=== PATIENT | female | born 1955 | race Caucasian/White ===

== ENCOUNTER 2022-07-03 14:43 | Observation (INO) | payer OTHER ==
[2022-07-03] VITALS (468 sets, daily range): BP systolic 129–140; BP diastolic 64–67; PULSE 90–92; TEMP 96.8–98.1; O2SAT 81–100
[~2022-07-03] VITALS: Ht 152.4 cm; Wt 100.3 kg
[2022-07-03 16:06] LABS: ARTERIAL BLD GAS O2 SATURATION 88.3 % (92-100); ARTERIAL BLD GAS TCO2 CT 24.4; ARTERIAL BLOOD GAS BASE EXCESS -1.2 (-2-2); ARTERIAL BLOOD GAS HCO3 23.2 meq/L (22-26); ARTERIAL BLOOD GAS PCO2 37.9 mmHg (35-45); ARTERIAL BLOOD GAS PO2 55.3 mmHg (80-100); ARTERIAL BLOOD GAS pH 7.41 (7.35-7.45)
[2022-07-03 17:01] LABS: MEAN CELL VOLUME 89 fl (80.0-100.0); MEAN CORPUSCULAR HEMOGLOBIN 27 pg (27-31); MEAN CORPUSCULAR HGB CONC 30 g/dl (33.0-37.0); MEAN PLATELET VOLUME 9.5 fl (7.4-10.4); PLATELET COUNT 136 K/mm3 (130-400); RED BLOOD COUNT 3.73 M/mm3 (4.10-5.30); REDCELL DISTRIBUTION WIDTH-CV 14.5 % (11.5-14.5)
[2022-07-03 17:03] LABS: HEMATOCRIT 33.1 % (37.0-47.0)
[2022-07-03 17:20] LABS: ALBUMIN 3.6 gm/dL (3.4-4.8); BILIRUBIN,TOTAL 0.8 mg/dL (0.2-1.2); CALCIUM 9.6 mg/dL (8.4-10.2); CREATININE, serum 0.76 mg/dL (0.57-1.11); POTASSIUM 3.6 mmol/L (3.5-4.5); TOTAL PROTEIN 7.7 gm/dL (6.2-8.1)
[2022-07-03 17:29] LABS: TROPONIN-I 0.023 ng/mL (0.00-0.033)
[2022-07-03 17:37] LABS: LYMPHOCYTE 5 % (20.0-51.0); METAMYELOCYTE 1 % (0-0); NEUTROPHILS 92 % (42.0-75.2)
[2022-07-03 17:38] LABS: HYPOCHROMIA 3+; PLATELET ESTIMATE NORMAL (NORMAL)
--- NOTE | 2022-07-03 20:12 | NUR ---
BEDSIDE SHIFT REPORT RECEIVED FROM JSESICA ADLER. PT CURRENTLY RESTING IN BED. VSS. SALINE LOCKED. BURNS DRAINING APPROPRIATELY. NO ACUTE CHANGES NOTED AT THIS TIME
[2022-07-04] VITALS (767 sets, daily range): BP systolic 117–134; BP diastolic 56–66; PULSE 61–96; TEMP 98.1–98.9; O2SAT 83–100
[2022-07-04 05:48] LABS: MEAN CORPUSCULAR HGB CONC 32 g/dl (33.0-37.0); MEAN PLATELET VOLUME 9.4 fl (7.4-10.4); PLATELET COUNT 136 K/mm3 (130-400); RED BLOOD COUNT 3.42 M/mm3 (4.10-5.30); REDCELL DISTRIBUTION WIDTH-CV 14.3 % (11.5-14.5)
[2022-07-04 06:05] LABS: CALCIUM 9.7 mg/dL (8.4-10.2); CREATININE, serum 0.73 mg/dL (0.57-1.11); POTASSIUM 4.5 mmol/L (3.5-4.5)
[2022-07-04 06:18] LABS: HEMATOCRIT 28.8 % (37.0-47.0); HEMOGLOBIN 9.1 g/dl (12.5-16.0); MEAN CELL VOLUME 84 fl (80.0-100.0); MEAN CORPUSCULAR HEMOGLOBIN 27 pg (27-31)
[2022-07-04 06:41] LABS: BAND 1 % (0-10); LYMPHOCYTE 8 % (20.0-51.0); NEUTROPHILS 87 % (42.0-75.2); PLATELET ESTIMATE NORMAL (NORMAL)
--- NOTE | 2022-07-04 09:08 | NUR ---
Fan Mail Clerk collaborated with RN who advised patient is alert, oriented and will discharge home today. 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 Patient sees Dr. Hermosillo for primary care and obtains medications from [facility] in [place] with no difficulties. Patient is independent with ADLS and does not use any DME. Patient does not have DPOA-HC but plans to complete this with her senior engineering manager soon. Patient states her friend, Blaire Rose from [place] is her emergency contact, but patient states she does not have her phone with her to provide phone number. Blaire will picking machine operator helper patient today at time of discharge. Discharge Plan: Home
--- NOTE | 2022-07-04 09:08 | NUR ---
PT UP TO CHAIR THIS MORNING FOR BREAKFAST. VSS. PT DENIES PAIN, SOB, DIZZINESS. PT AMBULATES TO COMMODE W/O ISSUES. NO GTTS RUNNING. NO FURTHER CONCERNS EXPRESSED.
--- NOTE | 2022-07-04 13:30 | NUR ---
Pt discharge instructions discussed with patient who verbalized understanding, all questions answered. No further needs expressed. Pt escorted out via WC to POV with friend to transport home.
== END 2022-07-04 13:30 | disposition home or self-care (01) ==
LOC: ICU 14:43
PROVIDERS: ADMIT Student in an Organized Health Care Education/Training Program
DX: J38.6 Stenosis of larynx (principal)
CPT/HCPCS: G0378; G0379

== ENCOUNTER → 2022-12-16 | Outpatient (CLI) | payer MEDICARE | LOC: COL.VAS 14:35 | DX: M79.661 Pain in right lower leg (principal) ==